=== PATIENT | male | born 1980 | race Caucasian/White ===

== ENCOUNTER 2017-10-04 13:47 | Emergency (ER) | payer BC ==
[2017-10-04] MEDS: HYDROcodone/APAP 5/325MG 1 TAB TABLET PO ×2 (14:30)
[2017-10-04] MEDS: ONDANSETRON PF 4 MG/2 ML VIAL. IV ×2 (15:26)
[2017-10-04] MEDS: IV NORMAL SALINE 1000ML BAG 1,000 ML IV ×2 (15:26)
[2017-10-04 15:53] LABS: ADD MAN DIFF? NO
[2017-10-04 15:56] LABS: BASO % 0 % (0-3); EOS # 0.2 x10^3/uL (0.0-0.7); EOS % 2 % (0-3); HEMATOCRIT 43.4 % (39.0-53.0); HEMOGLOBIN 15.1 g/dL (13.0-17.5); LYMPH # 3.4 x10^3/uL (1.0-4.8); LYMPH % 39 % (24-48); MEAN CORPUSCULAR HEMOGLOBIN 29 pg (25-35); MEAN CORPUSCULAR HGB CONC 35 g/dL (31-37); MEAN CORPUSCULAR VOLUME 84 fL (79-100); MONO # 0.6 x10^3/uL (0.0-1.1); MONO % 7 % (0-9); NEUT # 4.5 x10^3uL (1.8-7.7); NEUT % 52 % (31-73); PLATELET COUNT 275 x10^3/uL (140-400); RED BLOOD COUNT 5.18 x10^6/uL (4.30-5.70); RED CELL DISTRIBUTION WIDTH 13.9 % (11.5-14.5); WHITE BLOOD COUNT 8.7 x10^3/uL (4.0-11.0)
[2017-10-04 16:11] LABS: ANION GAP 12 (6-14); BLOOD UREA NITROGEN 11 mg/dL (8-26); BUN/CREATININE RATIO 12 (6-20); CALCIUM 8.4 mg/dL (8.5-10.1); CARBON DIOXIDE 23 mmol/L (21-32); CHLORIDE 101 mmol/L (98-107); CREATININE 0.9 mg/dL (0.7-1.3); GFR 94.4; GLUCOSE 162 mg/dL (70-99); POTASSIUM 3.4 mmol/L (3.5-5.1); SODIUM 136 mmol/L (136-145)
[2017-10-04 16:16] LABS: CREATINE KINASE 67 U/L (39-308)
[2017-10-04 16:17] LABS: ALBUMIN 3.1 g/dL (3.4-5.0); ALBUMIN/GLOBULIN RATIO 0.8 (1.0-1.7); ALK PHOS 102 U/L (46-116); ALT (SGPT) 26 U/L (16-63); AST (SGOT) 19 U/L (15-37); MAGNESIUM 1.8 mg/dL (1.8-2.4); TOTAL BILIRUBIN 0.4 mg/dL (0.2-1.0); TOTAL PROTEIN 7.1 g/dL (6.4-8.2)
[2017-10-04] MEDS: MAGNESIUM OXIDE 400 MG TABLET PO ×2 (16:46)
[2017-10-04] MEDS: POTASSIUM CHLORIDE 20 MEQ TABLET.ER. PO ×2 (16:53)
[2017-10-04] MEDS: HYOSCYAMINE 0.125 MG TAB.RAPDIS PO ×2 (16:53)
[2017-10-05 02:14] LABS: C DIFF BY PCR Negative (Negative)
== END 2017-10-04 17:00 | disposition home or self-care (01) ==
LOC: ER 17:00
DX: R19.7 Diarrhea, unspecified (principal); E86.0 Dehydration; E87.6 Hypokalemia; E83.42 Hypomagnesemia; R11.2 Nausea with vomiting, unspecified; R10.9 Unspecified abdominal pain; M79.1 Myalgia; R42 Dizziness and giddiness
CPT/HCPCS: 36415; 80053; 82550; 83735; 85025; 87045; 87177; 87324; 96361; 96374; 99284-25; J2405; J7030